=== PATIENT | male | born 1965 | race Caucasian/White ===

== ENCOUNTER 2016-08-01 11:00 | Emergency (ER) | payer OTHER | END 2016-08-01 11:40 | disposition home or self-care (01) | LOC: ER1 11:00 | DX: S61.210A Laceration without foreign body of right index finger without damage to nail, initial encounter (principal); E11.9 Type 2 diabetes mellitus without complications; Z88.0 Allergy status to penicillin; Z23 Encounter for immunization; W27.2XXA Contact with scissors, initial encounter; Y93.89 Activity, other specified; Y92.69 Other specified industrial and construction area as the place of occurrence of the external cause; Y99.0 Civilian activity done for income or pay; Z79.84 Long term (current) use of oral hypoglycemic drugs | CPT/HCPCS: 12001; 90471; 90715; 99282 ==

== ENCOUNTER → 2016-08-08 | Outpatient (CLI) | payer BC | LOC: RAD 14:42 | DX: M54.2 Cervicalgia (principal) | CPT/HCPCS: 72040 ==

== ENCOUNTER → 2021-05-11 | Outpatient (CLI) | payer BC ==
[2021-05-11 12:03] LABS: HEMOGLOBIN 15.3 gm/dl (14.0-17.5); RED BLOOD COUNT 5.3 M/UL (4.20-5.50); WHITE BLOOD COUNT 4.6 K/UL (4.5-11.0)
[2021-05-11 12:32] LABS: BUN/CREATININE RATIO 19 (0-10)
[2021-05-12 10:14] LABS: CREATININE, URINE 12.6 mg/dL (Not Estab.); MICROALB/CREAT RATIO <24 (0-29)
== END ==
LOC: LAB 11:00
PROVIDERS: Internal Medicine
DX: Z00.00 Encounter for general adult medical examination without abnormal findings (principal); E11.9 Type 2 diabetes mellitus without complications
CPT/HCPCS: 36415; 80053; 81001; 82043; 82570; 83036; 84153; 84443; 85025